=== PATIENT | female | born 1990 | race African-American/Black ===

== ENCOUNTER 2018-02-07 14:35 | Emergency (ER) | payer BC ==
[2018-02-07 15:23] LABS: Pregnancy Test - Urine (BHCG) Negative (Negative); Pregu Control Background? CLEAR/WHITE (CLR/WHITE); Pregu Control Bar Appear? YES (CONTROL BAR); Specific Gravity 1.025 (1.002-1.036)
[2018-02-07 15:24] LABS: Bilirubin Negative (Negative); Blood, Urine Moderate (Negative); Clarity Clear (Clear); Glucose, Urine (Dipstick) Negative (Negative); Leukocyte Negative (Negative); Nitrite Negative (Negative); Protein, Urine (Dipstick) Negative (Neg-Trace); Specific Gravity, Urine 1.025 (1.005-1.030); Urobilinogen 0.2 mg/dL (0.2-1.0); pH, Urine 5.5 (5.0-9.0)
[2018-02-07 15:26] LABS: Bacteria/HPF Rare-Few HPF (None Seen); RBC/HPF 0-3 HPF (0-3); Squamous Epithelial 0-3 HPF (0-3); WBC/HPF 0-3 HPF (0-3)
[2018-02-07 15:27] LABS: Hemoglobin 13.1 g/dL (12.0-16.0); Mean Corpuscular HGB CONC 33.8 g/dL (32.0-36.0); Platelet Count 258 thou/uL (130-400); RBC Distribution Width 12.4 % (11.5-14.5); Red Blood Cell (RBC) Count 5.05 mill/uL (4.20-5.40); White Blood Cell (WBC) Count 5.7 thou/uL (4.8-10.8)
[2018-02-07] MEDS ORDERED: Ketorolac Tromethamine 30 MG/ML VIAL ONE (15:27)
[2018-02-07] MEDS ORDERED: Ondansetron HCl/PF 4 MG/2 ML Vial ONE (15:28)
[2018-02-07 15:39] LABS: ALT (SGPT) 14 U/L (8-55); AST (SGOT) 24 U/L (5-34); Albumin 4.3 g/dL (3.5-5.0); Alkaline Phosphatase 63 U/L (40-150); Anion Gap 14 mmol/L (10-20); BUN (Urea Nitrogen) 8 mg/dL (7.0-18.7); Bilirubin, Total 0.4 mg/dL (0.2-1.2); Calc. Creatinine Clearance 0 mL/min (70-130); Calcium 9.2 mg/dL (7.8-10.44); Carbon Dioxide 22 mmol/L (22-29); Chloride 107 mmol/L (98-107); Estimated GFR-MDRD Greater than 90; Globulin 3.7 g/dL (2.4-3.5); Glucose 89 mg/dL (70-105); Lipase 8 U/L (8-78); Potassium 3.8 mmol/L (3.5-5.1); Sodium 139 mmol/L (136-145)
[2018-02-07 15:43] LABS: Eosinophils 1 % (0-10); Lymphocytes 50 % (21-51); MDiff Complete? YES; Monocytes 5 % (0-10); Neutrophil 41 % (42-75); Reactive Lymphocytes 3 % (0-10)
== END 2018-02-07 16:23 | disposition home or self-care (01) ==
LOC: BURERS 14:35
DX: R11.2 Nausea with vomiting, unspecified (principal); R19.7 Diarrhea, unspecified; G43.909 Migraine, unspecified, not intractable, without status migrainosus; J45.909 Unspecified asthma, uncomplicated
CPT/HCPCS: 80053; 81003; 81015; 81025; 83690; 85025; 96361; 96374; 96375; J1885; J2405

== ENCOUNTER 2018-04-10 07:53 | Emergency (ER) | payer BC ==
[2018-04-10] MEDS ORDERED: HYDROcodone/Acetaminophen 5/325 mg Tablet ONE (08:37)
--- NOTE | 2018-04-10 19:35 | RAD ---
RIGHT SHOULDER THREE VIEWS: 04/10/18 No fracture, dislocation, or joint space widening was seen. The AC joint is normal in width. IMPRESSION: No significant findings. POS: HOME
== END 2018-04-10 08:54 | disposition home or self-care (01) ==
LOC: BURERS 07:53
DX: S43.401A Unspecified sprain of right shoulder joint, initial encounter (principal); J45.909 Unspecified asthma, uncomplicated; X50.1XXA Overexertion from prolonged static or awkward postures, initial encounter

== ENCOUNTER 2019-02-17 22:11 | Emergency (ER) | payer BC, OTHER ==
[2019-02-17] MEDS ORDERED: HYDROcodone/Acetaminophen 5/325 mg Tablet ONE (23:23)
[2019-02-17] MEDS ORDERED: predniSONE 20 MG TAB ONE (23:23)
--- NOTE | 2019-02-18 07:22 | RAD ---
RIGHT SHOULDER THREE VIEWS: 02/17/2019 COMPARISON: 04/10/2018 FINDINGS: No fracture, dislocation, or AC joint widening is seen. There has been no adverse change since last year's study. IMPRESSION: No significant findings. POS: HOME
== END 2019-02-17 23:31 | disposition home or self-care (01) ==
LOC: BURERS 22:11
DX: M54.12 Radiculopathy, cervical region (principal); X50.1XXA Overexertion from prolonged static or awkward postures, initial encounter
CPT/HCPCS: J7512

== ENCOUNTER 2020-01-31 21:01 | Emergency (ER) | payer OTHER, SELFPAY ==
[2020-01-31] MEDS ORDERED: Ketorolac Tromethamine 60 MG/2 ML VIAL ONE (22:34)
[2020-01-31] MEDS ORDERED: Cyclobenzaprine 10 MG TAB ONE (22:35)
--- NOTE | 2020-01-31 23:59 | RAD ---
PORTABLE CHEST: Date: 01/31/2020 An AP portable film at 2210 hours shows a normal sized heart. There is no mediastinal widening or jesus ft. The lungs are fully inflated and clear. No effusions seen. No fractures appreciated. IMPRESSION: No acute thoracic findings. POS: HOME
== END 2020-01-31 22:43 | disposition home or self-care (01) ==
LOC: BURERS 21:01
DX: S20.212A Contusion of left front wall of thorax, initial encounter (principal); J45.909 Unspecified asthma, uncomplicated; G43.909 Migraine, unspecified, not intractable, without status migrainosus; Z79.899 Other long term (current) drug therapy; X58.XXXA Exposure to other specified factors, initial encounter
CPT/HCPCS: 71045; 93005; 96372; J1885

== ENCOUNTER 2020-05-13 08:23 | Emergency (ER) | payer OTHER, SELFPAY ==
[2020-05-13 08:54] LABS: Bilirubin Negative (Negative); Clarity Cloudy (Clear); Glucose, Urine (Dipstick) Negative (Negative); Ketone, Urine Negative (Negative); Leukocyte Moderate (Negative); Nitrite Negative (Negative); Protein, Urine (Dipstick) > or equal to 300 mg/dL (Neg-Trace); Specific Gravity, Urine 1.025 (1.005-1.030); Urobilinogen 0.2 mg/dL (Less than 2)
[2020-05-13 08:55] LABS: Blood, Urine Large (Negative)
[2020-05-13 08:56] LABS: RBC/HPF Greater than 50 HPF (0-3)
[2020-05-13 08:57] LABS: Bacteria/HPF Rare-Few HPF (None Seen); Squamous Epithelial 0-3 HPF (0-3)
[2020-05-13 08:58] LABS: Pregnancy Test - Urine (BHCG) Negative (Negative); Pregu Control Background? CLEAR/WHITE (CLR/WHITE); Pregu Control Bar Appear? YES (CONTROL BAR); Specific Gravity 1.025 (1.002-1.036)
[2020-05-13] MEDS ORDERED: Sulfameth/Trimethoprim DS 800-160mg TAB ONE (09:15)
[2020-05-13] MEDS ORDERED: Phenazopyridine HCl 97.5 MG TABLET ONE (09:15)
== END 2020-05-13 09:24 | disposition home or self-care (01) ==
LOC: BURERS 08:23
DX: N39.0 Urinary tract infection, site not specified (principal); J45.909 Unspecified asthma, uncomplicated; G43.909 Migraine, unspecified, not intractable, without status migrainosus
CPT/HCPCS: 81003; 81015; 81025; 87086; 99283

== ENCOUNTER 2021-02-02 03:36 | Emergency (ER) | payer OTHER, SELFPAY ==
[2021-02-02] MEDS ORDERED: Ondansetron ODT 4 MG TAB ONE (03:42)
[2021-02-02] MEDS ORDERED: Ketorolac Tromethamine 30 MG/ML VIAL ONE (04:09)
[2021-02-02] MEDS ORDERED: Metoclopramide HCl 10 MG/2 ML VIAL ONE (04:09)
[2021-02-02] MEDS ORDERED: diphenhydrAMINE 50 MG/ML VIAL ONE (04:09)
== END 2021-02-02 06:10 | disposition home or self-care (01) ==
LOC: BURERS 03:36
DX: G43.909 Migraine, unspecified, not intractable, without status migrainosus (principal); M54.2 Cervicalgia; R11.2 Nausea with vomiting, unspecified; I10 Essential (primary) hypertension; J45.909 Unspecified asthma, uncomplicated
CPT/HCPCS: 96365; 96366; 96375; J1200; J1885; J2765; Q0162

== ENCOUNTER 2021-07-04 13:57 | Emergency (ER) | payer OTHER, SELFPAY ==
[2021-07-04] MEDS ORDERED: Dexamethasone 10 MG/ML VIAL ONE (14:35)
== END 2021-07-04 14:40 | disposition home or self-care (01) ==
LOC: BURERS 13:57
DX: B34.9 Viral infection, unspecified (principal); K43.9 Ventral hernia without obstruction or gangrene; G43.909 Migraine, unspecified, not intractable, without status migrainosus; J45.909 Unspecified asthma, uncomplicated; I10 Essential (primary) hypertension
CPT/HCPCS: 99283; J1100

== ENCOUNTER 2022-03-12 13:52 | Emergency (ER) | payer BC, OTHER ==
[2022-03-12 15:01] LABS: #Monocytes 0.3 thou/uL (0.11-0.59); #Neutrophils 2.9 thou/uL (1.40-6.50); %Basophils 0.8 % (0.0-1.0); %Eosinophils 0.5 % (0.0-10.0); %Lymphocytes 48.1 % (21.0-51.0); %Monocytes 4.1 % (0.0-10.0); %Neutrophils 46.5 % (42.0-75.0); Hemoglobin 12.7 g/dL (12.0-16.0); Mean Corpuscular HGB CONC 30.5 g/dL (32.0-36.0); Mean Corpuscular Hemoglobin 26.7 pg (27.0-31.0); Mean Corpuscular Volume 87.8 fL (78.0-98.0); Mean Platelet Volume 5.7 fL (7.4-10.4); Platelet Count 309 thou/uL (130-400); RBC Distribution Width 13.7 % (11.5-14.5); Red Blood Cell (RBC) Count 4.76 mill/uL (4.20-5.40); White Blood Cell (WBC) Count 6.2 thou/uL (4.8-10.8)
[2022-03-12] MEDS ORDERED: Pantoprazole 40 MG VIAL ONE (15:09)
[2022-03-12] MEDS ORDERED: Ondansetron PF 4 MG/2 ML Vial ONE (15:09)
[2022-03-12 15:16] LABS: ALT (SGPT) 12 U/L (8-55); AST (SGOT) 11 U/L (5-34); Albumin 4.2 g/dL (3.5-5.0); Alkaline Phosphatase 50 U/L (40-110); Anion Gap 14 mmol/L (10-20); BUN (Urea Nitrogen) 8 mg/dL (7.0-18.7); Bilirubin, Total 0.5 mg/dL (0.2-1.2); Calc. Creatinine Clearance 0 mL/min (70-130); Calcium 9.1 mg/dL (7.8-10.44); Carbon Dioxide 22 mmol/L (22-29); Chloride 106 mmol/L (98-107); Estimated GFR 100; Globulin 3.4 g/dL (2.4-3.5); Glucose 82 mg/dL (70-105); Lipase 10 U/L (8-78); Potassium 3.5 mmol/L (3.5-5.1); Protein, Total 7.6 g/dL (6.0-8.3); Sodium 138 mmol/L (136-145)
[2022-03-12 15:17] LABS: BHCG - Serum Negative (NEGATIVE); Pregs Control Background? CLEAR/WHITE (CLR/WHITE); Pregs Control Bar Appear? YES (CONTROL BAR)
[2022-03-12] MEDS ORDERED: Ketorolac Tromethamine 30 MG/ML VIAL ONE (15:22)
[2022-03-12] MEDS ORDERED: Metoclopramide HCl 10 MG/2 ML VIAL ONE (15:22)
[2022-03-12] MEDS ORDERED: diphenhydrAMINE 50 MG/ML VIAL ONE (15:22)
[2022-03-12 16:01] LABS: Bilirubin Negative (Negative); Blood, Urine Trace (Negative); Clarity Slightly Cloudy (Clear); Glucose, Urine (Dipstick) Negative (Negative); Ketone, Urine 15 mg/dL (Negative); Leukocyte Negative (Negative); Nitrite Negative (Negative); Protein, Urine (Dipstick) Negative (Neg-Trace); Specific Gravity, Urine 1.025 (1.005-1.030); pH, Urine 6.5 (5.0-9.0)
[2022-03-12 16:07] LABS: Bacteria/HPF 2+ HPF (None Seen); Mucous/LPF 4+ LPF (<2+); RBC/HPF 0-3 HPF (0-3); Squamous Epithelial 0-3 HPF (0-3); WBC/HPF 0-3 HPF (0-3)
== END 2022-03-12 16:26 | disposition home or self-care (01) ==
LOC: BURERS 13:52
DX: R07.89 Other chest pain (principal); B34.9 Viral infection, unspecified; R51.9 Headache, unspecified; R11.2 Nausea with vomiting, unspecified; R19.7 Diarrhea, unspecified; I10 Essential (primary) hypertension
CPT/HCPCS: 71045; 80053; 81003; 81015; 83690; 84484; 84703; 85025; 93005; 96361; 96374; 96375; C9113; J1200; J1885; J2405; J2765

== ENCOUNTER 2025-01-16 13:56 | Emergency (ER) | payer BC, SELFPAY ==
[2025-01-16] MEDS ORDERED: diphenhydrAMINE 50 MG/ML VIAL ONE (14:43)
[2025-01-16] MEDS ORDERED: Ketorolac Tromethamine 30 MG (1 mL) VIAL ONE (14:43)
[2025-01-16] MEDS ORDERED: Promethazine HCl 25 MG/ML VIAL ONE (14:43)
[2025-01-16] MEDS ORDERED: Acetaminophen 500 MG TAB ONE (14:43)
== END 2025-01-16 16:26 | disposition home or self-care (01) ==
LOC: BURERS 13:56
DX: G43.909 Migraine, unspecified, not intractable, without status migrainosus (principal); B34.9 Viral infection, unspecified; I10 Essential (primary) hypertension; Z79.899 Other long term (current) drug therapy
CPT/HCPCS: 96361; 96365; 96375; J1200; J1885; J2550

== ENCOUNTER 2025-06-18 15:51 | Emergency (ER) | payer SELFPAY ==
[2025-06-18] MEDS ORDERED: diphenhydrAMINE 50 MG/ML VIAL ONE (16:17)
[2025-06-18] MEDS ORDERED: Ketorolac Tromethamine 30 MG (1 mL) VIAL ONE (16:18)
== END 2025-06-18 18:00 | disposition home or self-care (01) ==
LOC: BURERS 15:51
DX: G43.909 Migraine, unspecified, not intractable, without status migrainosus (principal); I10 Essential (primary) hypertension; J45.909 Unspecified asthma, uncomplicated; Z79.51 Long term (current) use of inhaled steroids
CPT/HCPCS: J1200; J1885; J2550